=== PATIENT | male | born 2000 | race Caucasian/White ===

== ENCOUNTER 2020-04-29 16:07 | Emergency (ER) | payer BC, OTHER ==
[~2020-04-29] VITALS: Ht 185.4 cm; Wt 90.7 kg
[2020-04-29 16:21] VITALS: BP 122/67
--- NOTE | 2020-04-29 17:25 | NUR ---
PT PLACED IN ALUMINUM FINGER SPLINT CMS WNL BEFORE AND AFTER
--- NOTE | 2020-04-29 18:03 | NUR ---
Patient discharged with v/s stable, IN NAD, PT AAOX4. Written and verbal after care instructions given and explained. Patient alert, oriented and verbalized understanding of instructions. Ambulatory with steady gait. All questions addressed prior to discharge. ID band removed, NO IV ACCESS THIS VISIT. Patient advised to follow up with PMD. Rx of IBUPROFEN 600 mg given. Patient educated on indication of medication including possible reaction and side effects. Opportunity to ask questions provided and answered.
== END 2020-04-29 18:03 | disposition home or self-care (01) ==
LOC: MED 16:07
DX: S63.92XA Sprain of unspecified part of left wrist and hand, initial encounter (principal); X58.XXXA Exposure to other specified factors, initial encounter; Y93.89 Activity, other specified; Y92.89 Other specified places as the place of occurrence of the external cause; Y99.8 Other external cause status
CPT/HCPCS: 73140; 99283